=== PATIENT | female | born 2000 | race Caucasian/White ===

== ENCOUNTER 2025-11-21 10:25 | Emergency (ER) | payer MEDICAID ==
[~2025-11-21] VITALS: Ht 162.6 cm; Wt 74.3 kg
[2025-11-21 10:27] VITALS: BP 140/87; PULSE 82; RESP 16; O2SAT 98
--- NOTE | 2025-11-21 11:29 | Physician Documentation ---
History of Present Illness ~ Chief Complaint: Ankle pain Stated Complaint: LEFT ANKLE PAIN Time Seen by MD: 10:52 Primary Medical Doctor: Jesus silva Source: patient Mode of Arrival: POV Exam Limitations: no limitations HPI 25-year-old female any ER for left ankle pain after rolling her ankle yesterday with pain and swelling. Tetanus witin 5 years: No Medication Reconciliation Allergies: Coded Allergies: No Known Allergies (Unverified , 11/21/25) Scheduled Ibuprofen (Ibu), 1 TAB PO Q8H Past Medical History Past Medical History: No Pertinent History Past Surgical History: noncontributory Drug Use: none Lives In: Home Occupation: employed Review of Systems All Other Systems at this time: Reviewed and Negative Musculoskeletal: Reports: see HPI Physical Exam Vital Signs: RN Vital Signs have been reviewed: Yes, Temperature: 98.0, Source: Temporal, Heart Rate: 82, Respiratory Rate: 16, BP: 140/87, Pulse Oximetry: 98, Weight: 74.300 Oxygen Flow Rate: 0 Physical Exam General: Alert, no apparent distress. HEENT: moist mucous membranes. Neck: Full range of motion. Respiratory: No respiratory distress speaking in full sentences Chest: No accessory muscle use. Cardiovascular: Appears well perfused Extremity: Swelling and tenderness to the left lateral malleolus reduced range of motion due to pain. No obvious deformities CMS intact Neurologic: Oriented x4. Psychiatric: Normal mood and affect. Skin: Normal color, warm and dry. No edema, no ecchymosis. Progress Results/Orders Results/Orders Orders - DALE CURTIS LEARNING DISABILITIES SPECIALIST Ortho Orders (11/21/25 ) Vital Signs 11/21/25 11/21/25 10:27 11:55 Temp 98.0 98.0 Pulse 82 Resp 16 B/P (MAP) 140/87 Pulse Ox 98 O2 Flow Rate 0 EKG/XRAY/CT/US/VASC/MRI Bone/Soft Tissue X-Ray (Ext.) : Additional Comment CLINICAL INDICATION: ANKLE PAIN TECHNIQUE: DI ANKLE, COMPLETE(3VW MIN) left COMPARISON: None FINDINGS/IMPRESSION: : There is no evidence of acute fracture or dislocation. Diffuse soft-tissue swelling. Medical Decision Making Additional information obtaine: N/A Findings X-ray to evaluate for any osseous abnormality including fractures. Differentials also include sprain. General Diff Dx:Considerations: Unlikely: Abrasion, Contusion, Fracture, Hematoma, Laceration, Malunion, Neurovascular injury, Open fracture, Sprain, Ulcer, Other Knee Diff Dx:Considerations: Unlikely: Abrasion, Arthritis, Contusion, DJD, Fracture-femur, Fracture-fibula, Fracture-patella, Fracture-tibia, Gout, Hematoma, Laceration, Meniscus injury, Neurovascular injury, Open fracture, Rheumatoid arthritis, Septic, Sprain, Sprain-MCL, Sprain-LCL, Sprain-ACL, Sprain-PCL, Other Ankle Diff Dx:Considerations: Include: Abrasion, Fracture-fibula, Fracture- tarsal, Sprain Foot Diff Dx:Considerations: Unlikely: Abrasion, Arthritis, Cellulitis, Contusion, Dislocation, DJD, Fracture-metatarsal, Fracture-phalynx, Fracture- tarsal, Gout, Hematoma, Ingrown toenail, Laceration, Malunion, Neurovascular injury, Open fracture, Paronychia, Puncture, Rheumatoid, Sprain, Septic, Subungual hematoma, Ulcer, Other Toe Diff Dx:Considerations: Unlikely: Abrasion, Cellulitis, Contusion, Dislocation, Felon, Fracture, Hematoma, Laceration, Neurovascular injury, Open fracture, Paronychia, Subungual hematoma, Other Departure Time of Disposition: 11:44 Disposition: 01 HOME / SELF CARE / HOMELESS Impression: Primary Impression: Sprain of ankle Condition: Stable Discharge Instructions: Ankle Sprain Additional Instructions: Your x-ray was negative for any fractures follow up with primary care but this can take 4-6 weeks as discussed. Crutches for a week or when comfortable you can use brace for 2-4 weeks Referrals: NO PRIMARY CARE PROVIDER (PCP) Prescriptions Ibuprofen (Ibu) 800 Mg Tablet 1 TAB PO Q8H for 7 Days, #21 TAB 0 Refills Prov: DALE CURTIS NP 11/21/25 Education Educated: Patient Educated regarding: diagnosis, treatment, need for follow up Signature Scribe Signature: No scribe Attestation: The note accurately reflects work and decisions made by me.Dale Curtis - [employer] 11/21/25 11:29 DALE CURTIS NP Nov 21, 2025 11:29
--- NOTE | 2025-11-21 11:41 | RADIOLOGY REPORT ---
CLINICAL INDICATION: ANKLE PAIN TECHNIQUE: DI ANKLE, COMPLETE(3VW MIN) left COMPARISON: None FINDINGS/IMPRESSION: : There is no evidence of acute fracture or dislocation. Diffuse soft-tissue swelling.
[2025-11-21] MEDS ORDERED: IBUP-864 PO (11:45)
[2025-11-21 11:55] VITALS: TEMP 98
== END 2025-11-21 11:55 | disposition home or self-care (01) ==
LOC: ER 10:27
DX: S93.492A Sprain of other ligament of left ankle, initial encounter (principal); Z79.899 Other long term (current) drug therapy; X50.1XXA Overexertion from prolonged static or awkward postures, initial encounter; Y92.89 Other specified places as the place of occurrence of the external cause; Y93.89 Activity, other specified; Y99.8 Other external cause status
CPT/HCPCS: 29515; 73610; 99283; L1930